=== PATIENT | female | born 1965 | race Caucasian/White ===

== ENCOUNTER 2016-06-16 08:21 | Emergency (ER) | payer MEDICAID ==
--- NOTE | 2016-06-16 08:52 | ED Physician Chart ---
Chief Complaint/HPI - Patient Information Date Seen:: 06/16/16 Time Seen:: 08:40 Chief Complaint:: right knee pain History of Present Illness:: right knee pain started 4 1/2 week ago when stepped out of bed. No trauma. Allergies:: Allergies Allergy/AdvReac Type Severity Reaction Status Date / Time ampicillin Allergy Verified 06/16/16 08:47 aripiprazole [From Abilify] Allergy Verified 06/16/16 08:47 brompheniramine Allergy Verified 06/16/16 08:47 [From Dimetapp DM Cold-Cough (PE)] dextromethorphan Allergy Verified 06/16/16 08:47 [From Dimetapp Cold-Congestion] diphenhydramine Allergy Verified 06/16/16 08:47 [From Dimetapp Cold-Congestion] doxycycline Allergy Verified 06/16/16 08:47 escitalopram [From Lexapro] Allergy Verified 06/16/16 08:47 guaifenesin Allergy Verified 06/16/16 08:47 [From Dimetapp Cold-Congestion] phenylephrine Allergy Verified 06/16/16 08:47 [From Dimetapp Cold-Congestion] pseudoephedrine Allergy Verified 06/16/16 08:47 [From Dimetapp Cold-Congestion] Vitals:: Vital Signs - 8 hr 06/16/16 08:40 Temp 98.1 F HR 73 RR 16 BP 143/91 O2 Sat % 98 Historian:: Patient Review:: Nurse's Note Reviewed, Old Chart Reviewed Review of Systems - Review of Systems General/Constitutional: No fever, No chills Skin: No skin lesions Head: No headache Eyes: No loss of vision ENT: No earache Neck: No neck pain, No swelling Cardio Vascular: No chest pain, No palpitations Pulmonary: No SOB GI: No nausea, No vomiting G/U: No dysuria Musculoskeletal: Bone or joint pain Endocrine: No polyuria, No polydipsia Psychiatric: Prior psych history Hematopoietic: No bruising Allergic/Immuno: No urticaria Neurological: No syncope Past Medical History - Past Medical History Past Medical History: HTN Family History: Diabetes Melitus, HTN Social History: Non Smoker Surgical History: other (tubal ligation) Medication: None Family Medical History - Family Member Father Hx Family Diabetes: Yes Physical Exam - Physical Examination General/Constitutional: Well-developed, well-nourished, No distress Head: Atraumatic Eyes: Lids, conjuctiva normal, PERRL Skin: Nl inspection, No rash ENMT: External ears, nose nl Neck: No nuchal rigidity Respiratory: Nl effort/Exclusion Cardio Vascular: RRR GI: No tenderness/rebounding/guarding, No organomegaly : No CVA tenderness Other Extremities comments:: right knee: FROM; collateral and cruciate ligaments stable; pre-patellar swelling and tenderness Neuro/Psych: No focal deficits Misc: Normal back Labs/Radiology/EKG Results - Radiology Results Results: x-ray right knee normal Assessment - Assessment General Assessment: needs referral by PCP to orthopedist who will probably order an MRI. Probably has arthritis in right knee. ED Septic Shock - . Is Septic Shock (SBP<90, OR Lactate>4 mmol\L) present?: No - <6hrs of presentation: Vital Signs: Vital Signs - 8 hr 06/16/16 08:40 Temp 98.1 F HR 73 RR 16 BP 143/91 O2 Sat % 98 Reassessment (Disposition) - Reassessment Reassessment Condition:: Unchanged - Diagnosis Diagnosis:: Right knee sprain/right knee arthritis - Aftercare/Follow up Instructions Aftercare/Follow-Up Instructions:: Refer to Discharge Instructions - Patient Disposition Discharge/Transfer:: Home Condition at Disposition:: Stable, Unchanged
--- NOTE | 2016-06-16 09:19 | Diagnostic Imaging Report ---
Right knee 2 views Indication: pain Comparison: none Findings: Mild degenerative changes are noted. No evidence of an acute fracture or joint effusion. Minimal distal quadriceps spurring is noted. Impression: No evidence of an acute fracture. Mild degenerative changes. In the setting of trauma, if clinical symptoms persist and there is continued concern for an occult fracture, follow up exams in 5-7 days is suggested.
== END 2016-06-16 09:45 | disposition home or self-care (01) ==
LOC: ER 08:21
DX: S83.8X1A Sprain of other specified parts of right knee, initial encounter (principal); M17.11 Unilateral primary osteoarthritis, right knee; I10 Essential (primary) hypertension; Z88.1 Allergy status to other antibiotic agents; Z88.0 Allergy status to penicillin; Z88.8 Allergy status to other drugs, medicaments and biological substances; X58.XXXA Exposure to other specified factors, initial encounter; Y93.89 Activity, other specified; Y92.89 Other specified places as the place of occurrence of the external cause; Y99.8 Other external cause status
CPT/HCPCS: 73560-TC-RT; Z7502